=== PATIENT | male | born 1955 | race Caucasian/White ===

== ENCOUNTER 2025-05-17 08:15 | Day surgery (SDC) | payer MEDICARE, SELFPAY ==
[2025-05-17] VITALS (8 sets, daily range): BP systolic 34–101; BP diastolic 24–62; PULSE 62–136; RESP 12–22; TEMP 35.9; O2SAT 93–100
--- NOTE | 2025-05-17 08:15 | RT.EKG_ITS ---
APPROVED REPORT Exam: Resting ECG Reason for Exam: trauma Patient Location: E HR:64 bpm ECG Measurements Heart Rate 64 AXIS KS 172 P 10 QRSd 95 QRS -14 QT 430 T 43 QTc 443 Conclusion Sinus rhythm...normal P axis, V-rate 60- 99
--- NOTE | 2025-05-17 08:21 | W.ED.GENAD ---
Discharge Plan Disposition Patient Disposition: Admit to [facility] Condition: Critical Discharge Details Clinical Impression: Traumatic retroperitoneal hematoma, Hypotension Attending Provider: Woodrow Tse Primary Care Provider: Unknown,Unknown ED Provider: Daniel Martin Discharge Data Discharge Date/Time-TO BE ENTERED AT DEPARTURE: 05/17/25 09:29 HPI General Mode of arrival: EMS. Date/Time Provider Initiated Documentation: 05/17/25 08:19. Information obtained by: EMS. History of Present Illness 69 year old M presents to the emergency department with the chief complaint of large object fell on him, left wrist and right ankle pain, chest pain, Patient started experiencing this hour(s) (1) and it has been constant. No relieving factors improve symptom(s), No exacerbating factors reported . Related Data Home Medications ?Medication ?Instructions ?Recorded ?Confirmed amlodipine 2.5 mg tablet 2.5 mg PO BID 05/17/25 05/17/25 aspirin 81 mg tablet,delayed 81 mg PO DAILY 05/17/25 05/17/25 release (Adult Aspirin Regimen) atorvastatin 80 mg tablet 80 mg PO DAILY 05/17/25 05/17/25 clopidogrel 75 mg tablet 75 mg PO DAILY 05/17/25 05/17/25 empagliflozin 25 mg tablet 25 mg PO DAILY 05/17/25 05/17/25 (Jardiance) nitroglycerin 0.4 mg sublingual 0.4 mg sublingual Q5M 05/17/25 05/17/25 tablet (Nitrostat) semaglutide 14 mg tablet (Rybelsus) 14 mg PO DAILY 05/17/25 05/17/25 Allergies Allergy/AdvReac Type Severity Reaction Status Date / Time No Known Allergies Allergy Unverified 05/17/25 08:39 Review of Systems All systems reviewed & are unremarkable except as noted in HPI and below Constitutional Constitutional: Denies chills and Denies fever(s) Cardiovascular Cardiovascular: Reports chest pain and Denies dyspnea Respiratory Respiratory: Denies cough and Denies dyspnea Gastrointestinal Gastrointestinal: Reports abdominal pain and Reports nausea Exam Const General: no acute distress Orientation: alert [facility] Head: no palpable skull fracture Ears: external ears normal General nose exam: external nose normal Mouth: moist mucous membranes Eyes General: appearance normal, both eyes and all related structures Neck Neck: normal visual inspection Chest Chest: no crepitus and tenderness Resp Effort & Inspection: normal respiratory effort and able to speak in complete sentences Auscultation: clear to auscultation bilaterally Cardio Jugular venous pressure: no JVD Rate: regular rate GI Palpation: soft and tender Skin General skin exam: no rashes or lesions noted Neuro General: patient alert and patient oriented x3 Extrem General: normal to inspection Psych Mental Status: mental status grossly normal Medical Decision Making 69-year-old male comes in after a large wooden beam fell on him while it was being unloaded off of a trailer. EMS states that bystanders that were helping him estimated it to be over 1000 pounds. He apparently lost consciousness briefly. With EMS his blood pressure was 100 systolic, on arrival he is a GCS of 15, he has a left wrist deformity and right ankle deformity. He is able to move his toes and fingers and has intact cap refill. He has intact sensation. He had a blood pressure of 80 systolic on arrival and on bedside ultrasound has free fluid near the spleen and liver. Patient does have a scalp laceration with bleeding controlled. Plan was to initially do CAT scans of the head, face and C-spine as well as the chest abdomen pelvis but given the hypotension and the positive fast plan will be to go to the operating room with general surgery and then likely transfer to [facility]. I did speak with Dr. Gonzales trauma surgery at [facility] who says they will accept but will need to be called once the surgeon is finishing in the OR. Dr. Tse is the general surgeon that is planning to take him to the OR. Given he is going to the OR repair of the lac was not done in the emergency department. Patient had a chest x-ray done which shows no significant acute findings, pelvis x-ray read as question of a possible right iliac wing avulsion fracture. His pelvis is not unstable on exam. Differential Diagnosis Differential Diagnosis: Fracture, contusion, intra-abdominal hemorrhage Lab Data Lab results reviewed: Yes I reviewed the patient's lab results. ECG Data Attestation: I personally reviewed and interpreted this ECG (s) as follows: Prior ECG tracings: available for review Interpretation: sinus rate of 64 no stemi Critical Care Time Critical Care Time Critical Care Time: Yes Total Critical Care Time: 45 (minutes) Attestation: Time spent on lab review and hemodynamic monitoring in a patient with blunt abdominal trauma with hypotension requiring blood transfusions and frequent reassessments with the potential to deteriorate at any time. PFSH All Active Problems (Updated 05/17/25 @ 14:39 by Daniel Martin MD) Hypotension (Acute) Scalp laceration (Acute) Traumatic retroperitoneal hematoma (Acute) CAD (coronary artery disease) (Chronic) Social History Smoking/Tobacco Use Status: Never Smoking risk assessment performed?: Yes Alcohol Intake: current Alcohol Intake frequency: a few times a month Alcohol type: beer Substance use type: does not use Housing: house POCUS Exam (ED) FAST Exam REASON FOR EXAM: Blunt abdominal trauma VISUALIZED STRUCTURES: Hepatorenal space and Perisplenic space PERTINENT FINDINGS/IMPRESSION: apparent free fluid, hepatorenal space and perisplenic space Limited Transthoracic Exam: Exam complete Limited Abdominal Exam: Exam complete Limited Retroperitoneal Exam: Exam complete Limited Thoracic Lung Exam REASON FOR EXAM: Blunt thoracic trauma VISUALIZED STRUCTURES: right anterior and left anterior PERTINENT FINDINGS/IMPRESSION: No apparent abnormalities Exam complete
[2025-05-17] MEDS: Ondansetron 4 MG/2 ML VIAL IVP (08:22)
[2025-05-17] MEDS: Normal Saline - Diluent 50 ML VIAL IJ (08:29)
--- NOTE | 2025-05-17 08:30 | DI.RAD_ITS ---
Exam(s) XR PORTABLE CHEST AP EXAM: XR PORTABLE CHEST AP CLINICAL HISTORY: ?hemopneumothorax TECHNIQUE: 2D digital imaging was performed of the chest. One image was obtained. An AP view was obtained. COMPARISON: No exams were available for comparison FINDINGS: The right costophrenic angle and the right lung apex are: From view. MEDIASTINUM: Normal. HEART: Normal. PULMONARY VASCULATURE: Normal. LUNGS: Clear. PLEURAL SPACE: No pleural effusion or pneumothorax. BONE:Within normal limits for the patient's age. OTHER FINDINGS:Normal. IMPRESSION: 1. Examination is limited due to patient positioning. 2. No acute abnormality. 3. The preliminary [facility] report was reviewed. DATA REPOSITORY: RADIATION DOSE DELIVERED:
[2025-05-17 08:38] LABS: Abs Immature Grans 0.07 10^3/uL (0.0-0.06); HCT 41.8 % (40.0-50.0); HGB 13.8 g/dL (13.5-17.5); Immature Grans % 0.7 %; MCH 28.9 pg (27.0-33.0); MCHC 33.0 % (32.0-36.0); MCV 88 fL (80-95); MPV 10.6 fL (8.0-11.0); Platelet Count 159 10^3/uL (130-400); RBC 4.77 10^6/uL (4.36-5.78); RDW 14.4 % (11.8-14.1); RDW-SD 46.2 fL; WBC 9.60 10^3/uL (4.4-10.8)
--- NOTE | 2025-05-17 08:45 | DI.RAD_ITS ---
Exam(s) XR PELVIS AP EXAM: XR PELVIS AP CLINICAL HISTORY: pain. TECHNIQUE: 2D digital imaging was performed.One images were obtained. COMPARISON: There are no priors for comparison. FINDINGS: BONES: No acute fracture is present. No bony destructive lesion is seen. JOINTS: No dislocation present. No joint space narrowing is present. SOFT TISSUE: There is a triangular bony fragment lateral to the right iliac. This may represent a displaced avulsed fracture fragment or foreign body. IMPRESSION: 1. Examination limited by patient positioning and technique. 2. There is a triangular osseous density lateral to the right iliac bone. A displaced avulsed fracture fragment or foreign body should be considered. 3. The preliminary [facility] report was reviewed. DATA REPOSITORY: RADIATION DOSE DELIVERED:
[2025-05-17 08:49] LABS: INR 1.1 (0.9-1.1); Prothrombin Time 10.8 sec (9.1-11.1)
[2025-05-17 08:51] LABS: PTT Activated 22.9 sec (20.6-30.2)
[2025-05-17 08:56] LABS: ALT 43 U/L (16-63); AST 33 U/L (15-37); Albumin 3.7 g/dL (3.4-5.0); Alkaline Phosphatase 94 U/L (46-116); Anion Gap 10.9 mmol/L (3-11); BUN 26 mg/dL (7-18); Bilirubin, Total 1.2 mg/dL (0.2-1.0); CO2 24.1 mmol/L (21.0-32.0); Calcium 9.1 mg/dL (8.5-10.1); Chloride 103 mmol/L (98-107); Estimated GFR 53.74 (mL/min/1.73m2); Glucose 258 mg/dL (74-106); Lipase 91 U/L (<78); Magnesium 2.3 mg/dL (1.8-2.4); Potassium 4.4 mmol/L (3.5-5.1); Sodium 138 mmol/L (136-145); Total Protein 6.8 g/dL (6.4-8.2); Troponin I 11 ng/L (<or=76)
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
[2025-05-17] MEDS: MORPHine 4 MG/ML SYR (09:00)
[2025-05-17] MEDS: ELECTROLYTE-R SOLUTION 1,000 ML 30 ML IV (09:17)
[2025-05-17] MEDS: Lactated Ringers 1,000 ML 30 ML IV (09:17)
[2025-05-17] MEDS: Lactated Ringers 1,000 ML 1000 ML IV (09:29)
[2025-05-17 10:33] LABS: BE -7 mmol/L (-2-3); HCO3 20 mmol/L (22-26)
[2025-05-17 10:35] LABS: HCT 34.3 % (40.0-50.0); HGB 11.2 g/dL (13.5-17.5)
[2025-05-17 10:45] LABS: Anion Gap 11.1 mmol/L (3-11); BUN 26 mg/dL (7-18); CO2 22.9 mmol/L (21.0-32.0); Calcium 9.2 mg/dL (8.5-10.1); Chloride 107 mmol/L (98-107); Estimated GFR 71.77 (mL/min/1.73m2); Glucose 252 mg/dL (74-106); Potassium 4.5 mmol/L (3.5-5.1); Sodium 141 mmol/L (136-145)
[2025-05-17 10:47] LABS: INR 1.1 (0.9-1.1); Prothrombin Time 11.3 sec (9.1-11.1)
[2025-05-17 10:54] LABS: Troponin I 11 ng/L (<or=76)
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
--- NOTE | 2025-05-17 11:09 | W.PM.HP.N ---
Date of service: 05/17/25 Time of Service: 09:00 Assessment and Plan Assessment and plan (1) CAD (coronary artery disease): Status: Chronic Assessment and plan: Patient is on 2 antiplatelet agents, aspirin and Plavix. Here at our facility he did receive 4 units of FFP during surgical procedure. (2) Traumatic retroperitoneal hematoma: Status: Acute Assessment and plan: Traumatic nonexpanding retroperitoneal hematoma was identified on the left upper quadrant just below the splenic flexure. The abdomen was packed and a damage control laparotomy, patient pending transport to [facility]. (3) Scalp laceration: Status: Acute Assessment and plan: Identified at termination of case today, this was repaired with elida. History of Present Illness History of Present Illness Chief Complaint: Blunt abdominal trauma Narrative: Patient is a 69-year-old male, he presented to this facility ([facility]), around 8:30 AM. He sustained a blunt injury to the abdomen approximately an hour and a half prior to presentation. A large metal I-beam from a construction site fell on the patient. On arrival at the facility here patient was awake and mentating, he was hypotensive. His abdominal fast was positive for blood in the splenorenal fossa as well as Morison's pouch. He did have a deformity to the left wrist and forearm, and a deformity to the right ankle. He was taken emergently to the OR as per operative dictation. Review of Systems Unobtainable due to mental condition [facility] All Active Problems (Updated 05/17/25 @ 11:12 by Woodrow Tse MD) Scalp laceration (Acute) Traumatic retroperitoneal hematoma (Acute) CAD (coronary artery disease) (Chronic) Social History Smoking/Tobacco Use Status: Never Smoking risk assessment performed?: Yes Alcohol Intake: current Alcohol Intake frequency: a few times a month Alcohol type: beer Substance use type: does not use Housing: house Meds Allergies and Home Medications Allergies Allergy/AdvReac Type Severity Reaction Status Date / Time No Known Allergies Allergy Unverified 05/17/25 08:39 Home Medications ?Medication ?Instructions ?Recorded ?Confirmed ?Type amlodipine 2.5 mg tablet 2.5 mg PO BID 05/17/25 05/17/25 History aspirin 81 mg tablet,delayed 81 mg PO DAILY 05/17/25 05/17/25 History release (Adult Aspirin Regimen) atorvastatin 80 mg tablet 80 mg PO DAILY 05/17/25 05/17/25 History clopidogrel 75 mg tablet 75 mg PO DAILY 05/17/25 05/17/25 History empagliflozin 25 mg tablet 25 mg PO DAILY 05/17/25 05/17/25 History (Jardiance) nitroglycerin 0.4 mg sublingual 0.4 mg sublingual Q5M 05/17/25 05/17/25 History tablet (Nitrostat) semaglutide 14 mg tablet (Rybelsus) 14 mg PO DAILY 05/17/25 05/17/25 History Exam Narrative Exam Narrative: On presentation to the facility here, the patient was on nonrebreather, a c-collar, he reported pain in his abdomen and extremities, as well as his back. His vital signs did show hypotension. He is airway was patent. His lungs were clear bilaterally, his cardiac rate was normal. Plain film of the chest and abdomen were performed these were unremarkable for gross injury. A fast was performed this showed fluid in the left upper quadrant as well as Morison's pouch. Results Imaging Abdominal x-ray: other (See as above) Labs 05/17/25 10:29 05/17/25 10:29 Labs: Laboratory Results - last 24 hr 05/17/25 05/17/25 05/17/25 08:23 08:23 10:29 WBC 9.60 RBC 4.77 Hgb 13.8 11.2 L D Hct 41.8 34.3 L MCV 88 MCH 28.9 MCHC 33.0 RDW 14.4 H Plt Count 159 MPV 10.6 Immature Gran % 0.7 Neutrophils % 69.8 Lymphocytes % 19.8 Monocytes % 6.8 Eosinophils % 2.2 Basophils % 0.7 Nucleated RBC % 0.0 Absolute Neutrophils 6.70 Absolute Lymphocytes 1.90 Absolute Monocytes 0.65 Absolute Eosinophils 0.21 Absolute Basophils 0.07 PT 10.8 11.3 H INR 1.1 1.1 APTT 22.9 ABG Sample Site Arterial Line ABG pH 7.27 L ABG pCO2 43 ABG pO2 166 H ABG HCO3 20 L ABG Total CO2 19 L ABG O2 Saturation Not Applicable ABG Base Excess -7 L Sodium 138 141 Potassium 4.4 4.5 Chloride 103 107 Carbon Dioxide 24.1 22.9 Anion Gap 10.9 11.1 H BUN 26 H 26 H Creatinine 1.4 H 1.1 Est GFR (CKD-EPI 2020) 53.74 71.77 Glucose 258 H 252 H Calcium 9.1 9.2 Magnesium 2.3 Total Bilirubin 1.2 H AST 33 ALT 43 Alkaline Phosphatase 94 Troponin I 11 Cancelled 11 Total Protein 6.8 Albumin 3.7 Lipase 91 H ABO/Rh O Negative Antibody Screen NEGATIVE Crossmatch See Detail Last Vital Signs Temp 35.9 C L 05/17/25 08:14 Pulse 62 05/17/25 08:50 Resp 22 05/17/25 09:01 BP 101/60 05/17/25 09:01 Pulse Ox 100 05/17/25 08:50 Time Spent Time spent with Patient: >75 minutes Time was spent: preparing to see the patient(eg.review tests), obtaining and/or reviewing separately otained hiistory, ordering medications,tests, procedures, referring, communicating with other health healthcare management, indepentently interpreting results, counseling the patient and care coordination
[2025-05-17] MEDS: Bupivacaine 0.25% Pres-Free W/EPI 30 ML VIAL (11:43)
--- NOTE | 2025-05-17 11:48 | RESPIRATORY ---
05/17/2025 Approx 0800 Intubation supplies prepared at bedside, patient on NRB by EMS but left on by this RT for preoxygenation in case of emergent intubation. Patient had a bout of emesis but was sat up and suction was used and patient was able to protect his airway. ETCO2 cannula on and O2 administered through cannula as well. Pt maintained SPO2, ETCO2, and patient was on NRB when transferred to OR.
--- NOTE | 2025-05-17 11:52 | W.ANESPOSTOP ---
Postoperative Evaluation Date, Time and Location Date Performed: 05/17/25 Time Performed: 11:52 Patient Location: Other Vital Signs Most Recent Imported Vital Signs: Most Recent Vital Signs Temp Pulse Resp BP Pulse Ox 35.9 C L 62 22 101/60 100 05/17/25 08:14 05/17/25 08:50 05/17/25 09:01 05/17/25 09:01 05/17/25 08:50 Pain Score Most Recent Pain Score: Most Recent Pain Score Pain Level 6 05/17/25 09:19 Assessment Mental Status: Unable to Participate (Document Reason) Airway and Respiratory Function: Other Cardiovascular Function: Other Hydration Status: Adequately Hydrated Nausea & Vomiting: No Nausea or Vomiting Pain: Other Peripheral Nerve Block: Patient did not receive a nerve block Postoperative Comments:: OR transfer to [facility].
--- NOTE | 2025-05-17 11:54 | ANES.VASC_ITS ---
Central Venous Line Placement Date Performed: 05/17/25 Procedure Time: 09:40 Procedure Location: Operating Room Requesting Provider: Osito Sams Standard Monitors Applied: ECG, Blood Pressure, SpO2 and ETCO2 Pt. Position: Supine Timeout Performed: No Sedation Given (Indicate Dose Given): No Sedation given Patient Mental Status: Performed under general anesthesia Sterility: Hand Hygiene, Surgical Cap, Surgical Mask, Sterile Gloves, Sterile Drape/Sheet and Chlorhexidine Laterality: Right Insertion Site: Subclavian Central Line Type: 8.5 [place] Rican Insertion Procedure: Vessel accessed with needle, Guidewire placed with ease, Extension tubing fills with blood, then empties easily with gravity, Dermatotomy (skin lionel) made with scalpel, Dilator placed without resistance, Introducer/Catheter placed without resistance, Guidewire removed, Claves placed, blood withdrawn, ports flushed and clamped and Other (Line not placed in the full sterility required to be considered a sterile line placement. ) Dressing: Tegaderm Applied and Sutured in Place Catheter Depth at Skin (cm): 10 Placement Confirmation: Other (blood return, US with lung sliding bilaterally, no evidence of PTX. ) Ultrasound: Sterile probe cover and gel used (Trauma case, unable to place US order in a timely fashion. ) Ultrasound Image Saved?: No Number of Attempts (See previous attempts in note section): 1 Procedure Tolerated: No Complications Procedure Outcome: Successful Performed By: Osito Sams Arterial Line Placement Date Performed: 05/17/25 Procedure Time: 10:00 Procedure Location: Operating Room Requesting Provider: Osito Sams Timeout Performed: No Sedation Given (Indicate Dose Given): No Sedation given Patient Mental Status: Performed under general anesthesia Sterility: Hand Hygiene, Surgical Cap, Surgical Mask, Sterile Gloves and Chlorhexidine Laterality: Right Insertion Site: Radial Arterial Line Catheter: 20G Arrow Arterial Line Procedure: Vessel accessed with catheter over needle, Guidewire placed with ease, Catheter placed without resistance and Guidewire removed Dressing: Tegaderm Applied and Mastisol Used Ultrasound: Sterile probe cover and gel used (Trauma, unable to place US order in a timely fashion. ) Ultrasound Image Saved?: No Number of Attempts (See previous attempts in note section): 1 Procedure Tolerated: No Complications Procedure Outcome: Successful Performed By: Osito Sams
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
== END 2025-05-17 09:30 | disposition home or self-care (01) ==
LOC: ER 09:14 → SUR 09:15
PROVIDERS: Nurse Anesthetist, Certified Registered; Emergency Provider Emergency Medicine; Visit Provider Surgery
PROC: 0WJG0ZZ Inspection of Peritoneal Cavity, Open Approach (ICD-10-PCS; CPT 49000; principal; 2025-05-17 09:00)
DX: S36.81XA Injury of peritoneum, initial encounter (principal); S36.892A Contusion of other intra-abdominal organs, initial encounter; I95.9 Hypotension, unspecified; S01.01XA Laceration without foreign body of scalp, initial encounter; I25.10 Atherosclerotic heart disease of native coronary artery without angina pectoris; W20.8XXA Other cause of strike by thrown, projected or falling object, initial encounter; Z79.899 Other long term (current) drug therapy
CPT/HCPCS: 12002; 49000; 36556; 76604; 76705; 76857; 80048; 80053; 82805; 83690; 86850; 86900; 86901; 86920; 93005; 93308; 96372; 96374; 99291; 71045; 72170; 83735; 84484; 85014; 85018; 85025; 85610; 85730; 86644; 93010; J0612; J0690; J2250; J2270; J2405; J2598; J2704; J3010; P9016; P9059